=== PATIENT | female | born 1950 | race Caucasian/White ===

== ENCOUNTER 2024-02-15 14:31 | Emergency (ER) | payer OTHER ==
[~2024-02-15] VITALS: Ht 154.9 cm; Wt 56.7 kg
[2024-02-15] MEDS ORDERED: HYDROCODONE/APAP 5/325MG TABLET ONE (15:27)
[2024-02-15] MEDS: HYDROCODONE/APAP 5/325MG TABLET PO ONE (15:32)
[2024-02-15] MEDS ORDERED: KETOROLAC TROMETHAMINE 15 MG/ML VIAL ONE (16:36)
[2024-02-15] MEDS ORDERED: ACETAMINOPHEN ES 500 MG TABLET ONE (16:36)
[2024-02-15] MEDS: ACETAMINOPHEN ES 500 MG TABLET PO ONE (16:38)
[2024-02-15] MEDS: KETOROLAC TROMETHAMINE 15 MG/ML VIAL IM ONE (16:38)
[2024-02-15] MEDS ORDERED: IBUP-1490 PO (17:13)
[2024-02-15] MEDS ORDERED: ACET-2605 PO (17:13)
[2024-02-15] MEDS ORDERED: OXYC5CAP18 PO (17:13)
[2024-02-15 18:09] VITALS: BP 120/75; TEMP 97.7; O2SAT 99
== END 2024-02-15 18:09 | disposition home or self-care (01) ==
LOC: ER 14:55
DX: S52.614A Nondisplaced fracture of right ulna styloid process, initial encounter for closed fracture (principal); S52.501A Unspecified fracture of the lower end of right radius, initial encounter for closed fracture; Z88.8 Allergy status to other drugs, medicaments and biological substances; Z60.2 Problems related to living alone; W10.8XXA Fall (on) (from) other stairs and steps, initial encounter; Y93.89 Activity, other specified; Y92.89 Other specified places as the place of occurrence of the external cause; Y99.8 Other external cause status
CPT/HCPCS: 29125; 73090; 73110; 96372; 99284; J1885